=== PATIENT | male | born 1985 | race Caucasian/White ===

== ENCOUNTER → 2020-09-02 13:44 | Outpatient (BNVA) | payer SELFPAY | PROVIDERS: Visit Provider Internal Medicine | DX: E04.1 Nontoxic single thyroid nodule (principal); E05.00 Thyrotoxicosis with diffuse goiter without thyrotoxic crisis or storm; F41.9 Anxiety disorder, unspecified; G47.00 Insomnia, unspecified | CPT/HCPCS: 99204 ==

== ENCOUNTER 2020-09-08 10:53 | Outpatient (CLI) | payer SELFPAY ==
--- NOTE | 2020-09-08 11:00 | US_ITS ---
WS: [id number] THYROID ULTRASOUND HISTORY: thyroid nodule, hyperthyroid COMPARISON: None available. Right lobe: 6.4 cm x 3.8 cm x 2.1 cm. Volume: 26.3 cm3. Enlarged gland with increased vascularity. No focal nodules. There are numerous punctate foci increa sed echogenicity throughout the gland. No adenopathy. Left lobe: 6.7 cm x 3.2 cm x 2.9 cm. Volume: 32.4 cm3. Markedly enlarged thyroid lobe. Marked increased vascularity and numerous foci of increased echogenic ity. No adenopathy. Isthmus: 0.9 cm. US/US thyroid [id number] IMPRESSION: Markedly enlarged hypervascular gland. Most likely due to Graves' disease. Ther e is no suspicious or focal nodule.
== END 2020-09-08 10:54 | disposition home or self-care (01) ==
LOC: RAD 10:59
PROVIDERS: Visit Provider Internal Medicine
DX: E04.1 Nontoxic single thyroid nodule (principal); E05.90 Thyrotoxicosis, unspecified without thyrotoxic crisis or storm
CPT/HCPCS: 76536

== ENCOUNTER → 2023-01-30 15:35 | Outpatient (BNVA) | payer OTHER, SELFPAY | PROVIDERS: Visit Provider Internal Medicine | DX: E05.90 Thyrotoxicosis, unspecified without thyrotoxic crisis or storm (principal) | CPT/HCPCS: 36415; 84439; 84443; 84480 ==

== ENCOUNTER 2023-02-13 13:10 | Outpatient (CLI) | payer OTHER, SELFPAY ==
[2023-02-13 14:07] LABS: Free T4 Free Thyroxine 0.71 ng/dL (0.82-1.77); Thyroid Stimulating Hormone 4.81 uIU/mL (0.27-4.20)
== END 2023-02-13 13:11 | disposition home or self-care (01) ==
LOC: LAB 13:13
PROVIDERS: PCP Internal Medicine; Visit Provider Internal Medicine
DX: E05.90 Thyrotoxicosis, unspecified without thyrotoxic crisis or storm (principal); E04.1 Nontoxic single thyroid nodule
CPT/HCPCS: 36415; 84439; 84443

== ENCOUNTER 2023-02-27 12:05 | Outpatient (CLI) | payer OTHER, SELFPAY ==
[2023-02-27 13:02] LABS: Thyroid Stimulating Hormone 4.95 uIU/mL (0.27-4.20)
[2023-02-28 09:24] LABS: T3 Total 150 ng/dL (76-181)
== END 2023-02-27 12:06 | disposition home or self-care (01) ==
LOC: LAB 12:06
PROVIDERS: PCP Internal Medicine; Visit Provider Internal Medicine
DX: E05.90 Thyrotoxicosis, unspecified without thyrotoxic crisis or storm (principal)
CPT/HCPCS: 36415; 84439; 84443; 84480

== ENCOUNTER 2023-04-05 11:00 | Outpatient (CLI) | payer OTHER, SELFPAY ==
[2023-04-05 12:26] LABS: Free T4 Free Thyroxine 1.05 ng/dL (0.82-1.77); Thyroid Stimulating Hormone 2.63 uIU/mL (0.27-4.20)
[2023-04-06 11:50] LABS: T3 Total 164 ng/dL (76-181)
== END 2023-04-05 11:01 | disposition home or self-care (01) ==
PROVIDERS: Visit Provider Internal Medicine
DX: E04.1 Nontoxic single thyroid nodule (principal); E05.90 Thyrotoxicosis, unspecified without thyrotoxic crisis or storm
CPT/HCPCS: 36415; 84439; 84443; 84480